=== PATIENT | male | born 1970 | race Caucasian/White ===

== ENCOUNTER 2018-08-16 14:07 | Emergency (ER) | payer OTHER ==
[~2018-08-16] VITALS: Ht 182.9 cm; Wt 89.8 kg
[2018-08-16 14:23] VITALS: BP 136/95
--- NOTE | 2018-08-16 16:07 | NUR ---
PT AMBULATED TO ER BED 09
--- NOTE | 2018-08-16 16:09 | NUR ---
PT c/o right rib area pain x this am----pain increases with cough denies injury hx--denies rx---sam jerez
--- NOTE | 2018-08-16 17:00 | NUR ---
PT ON STRETCHER IN NAD, NO COMPLAINTS AT THIS TIME
[2018-08-16] MEDS ORDERED: NACL 0.9% 1,000 ML IV ONE (17:27)
[2018-08-16] MEDS ORDERED: NACL 0.9% 1,000 ML IV SCH (17:27)
[2018-08-16] MEDS ORDERED: MORPHINE SULFATE 4 MG/ML SYR IVP ONE (17:30)
[2018-08-16] MEDS ORDERED: ONDANSETRON 4 MG/2 ML VIAL IVP ONE (17:30)
[2018-08-16] MEDS ORDERED: KETOROLAC 30 MG/ML VIAL IVP ONE (17:30)
[2018-08-16 18:04] LABS: BASOPHILS # (AUTO) 0.1 K/uL (0.00-0.22); BASOPHILS % (AUTO) 0.7 % (0.0-2.0); EOSINOPHILS # (AUTO) 0.2 K/uL (0-0.4); EOSINOPHILS % (AUTO) 1.6 % (0.0-4.0); HEMATOCRIT 49.1 % (36-52); HEMOGLOBIN 16.5 g/dL (12.0-18.0); LYMPHOCYTES # (AUTO) 3.6 K/uL (2.0-11.5); LYMPHOCYTES % (AUTO) 28.7 % (20.5-51.1); MEAN CORPUSCULAR HEMOGLOBIN 29 pg (27-31); MEAN CORPUSCULAR HGB CONC 34 g/dL (33-37); MEAN CORPUSCULAR VOLUME 85.4 fL (80-94); MONOCYTES # (AUTO) 0.6 K/uL (0.8-1.0); MONOCYTES % (AUTO) 4.9 % (1.7-9.3); NEUTROPHILS % (AUTO) 64.1 % (42.2-75.2); PLATELET COUNT (AUTO) 259 K/uL (140-450); RED BLOOD CELL COUNT(AUTO) 5.75 MIL/uL (4.20-6.10); RED CELL DISTRIBUTION WIDTH 13.4 % (11.6-13.7); WHITE BLOOD COUNT (AUTO) 12.5 K/uL (4.8-10.8)
--- NOTE | 2018-08-16 18:17 | NUR ---
PT RETURN FROM CT
[2018-08-16 18:19] LABS: ALBUMIN 3.8 g/dL (3.4-5.0); ANION GAP 11.1 (8-16); CARBON DIOXIDE 27.9 mmol/L (21-32); CREATININE 1.2 mg/dL (0.7-1.3); TOTAL BILIRUBIN 0.5 mg/dL (0.0-1.0)
[2018-08-16 18:20] LABS: APPEARANCE,URINE CLEAR (CLEAR); COLOR,URINE YELLOW (YELLOW)
[2018-08-16 18:21] LABS: BILIRUBIN,URINE NEGATIVE (NEGATIVE); BLOOD, URINE NEGATIVE (NEGATIVE); LEUKOCYTE ESTERASE ,URINE NEGATIVE (NEGATIVE); NITRITE, URINE NEGATIVE (NEGATIVE); UGLUCOSE NEGATIVE (NEGATIVE)
[2018-08-16 18:57] LABS: AMYLASE 55 U/L (25-115); LIPASE 185 U/L (73-393)
[2018-08-16 19:16] VITALS: BP 135/75
--- NOTE | 2018-08-16 19:17 | NUR ---
Patient discharged with v/s stable. Written and verbal after care instructions given and explained. Patient alert, oriented and verbalized understanding of instructions. Ambulatory with steady gait. All questions addressed prior to discharge. ID band removed. Patient advised to follow up with PMD. Rx of levaquin, promethazine, tramadol given. Patient educated on indication of medication including possible reaction and side effects. Opportunity to ask questions provided and answered.
== END 2018-08-16 19:17 | disposition home or self-care (01) ==
LOC: MED 14:07
DX: J44.1 Chronic obstructive pulmonary disease with (acute) exacerbation (principal); F17.210 Nicotine dependence, cigarettes, uncomplicated
CPT/HCPCS: 36415; 71101; 71250; 74176; 80053; 81003; 82150; 83690; 83880; 84484; 85025; 85379; 85610; 85730; 96374; 96375; 99285; J1885; J2270; J2405; J7030